=== PATIENT | female | born 1970 | race Caucasian/White ===

== ENCOUNTER → 2020-05-11 | Day surgery (SDC) | payer MEDICARE, MEDICAID ==
[~2020-05-11] MED LIST: Lidocaine 1% PF 5 ML VIAL ONE; Sodium Bicarbonate 2.5 MEQ/5 ML VIAL ONE
[2020-05-11 12:56] VITALS: BP 160/83; TEMP 98.5
== END ==
LOC: CSHRAD 10:39
PROVIDERS: ATTEND Specialist
DX: M54.12 Radiculopathy, cervical region (principal); M54.16 Radiculopathy, lumbar region
CPT/HCPCS: 62302; 62304; 62305; 72126; 72132

== ENCOUNTER 2020-12-31 22:30 | Emergency (ER) | payer MEDICARE ==
[2020-12-31 23:15] LABS: Bilirubin Neg (Negative); Blood, Urine 50 (Negative); Clarity Clear (Clear); Glucose, Urine (Dipstick) Normal (Negative); Ketone, Urine Negative (Negative); Leukocyte 500 (Negative); Nitrite Negative (Negative); Protein, Urine (Dipstick) 15 mg/dl (Neg-Trace)
[2020-12-31 23:23] LABS: Bacteria/HPF 3+ HPF (None Seen); Mucous/LPF 2+ LPF (<2+); RBC/HPF 0-3 HPF (0-3); WBC/HPF 21-50 HPF (0-3)
== END 2020-12-31 23:57 | disposition home or self-care (01) ==
LOC: CSHERS 22:30
DX: N30.00 Acute cystitis without hematuria (principal); J02.9 Acute pharyngitis, unspecified; N76.89 Other specified inflammation of vagina and vulva; J45.909 Unspecified asthma, uncomplicated; I10 Essential (primary) hypertension; E11.9 Type 2 diabetes mellitus without complications; F17.210 Nicotine dependence, cigarettes, uncomplicated; Z79.899 Other long term (current) drug therapy
CPT/HCPCS: 81003; 81015; 99283

== ENCOUNTER 2021-09-12 20:54 | Emergency (ER) | payer MEDICARE, MEDICAID ==
[2021-09-12 22:43] LABS: SARS-CoV-2 NAA Rapid Test DETECTED (NotDetected)
== END 2021-09-12 23:30 | disposition home or self-care (01) ==
LOC: CSHERS 20:54
DX: U07.1 COVID-19 (principal); F17.210 Nicotine dependence, cigarettes, uncomplicated; E11.9 Type 2 diabetes mellitus without complications; I10 Essential (primary) hypertension; Z79.899 Other long term (current) drug therapy; Z79.84 Long term (current) use of oral hypoglycemic drugs
CPT/HCPCS: 0240U; 96372; 99283